=== PATIENT | female | born 1970 | race Caucasian/White ===

== ENCOUNTER 2018-02-04 22:36 | Emergency (ER) | payer OTHER ==
[2018-02-04] MEDS ORDERED: NA CHLORIDE 0.9% 1,000 ML ONE (23:27)
[2018-02-04] MEDS ORDERED: PROMETHAZINE 25 MG/ML VIAL ONE (23:32)
[2018-02-05 00:10] LABS: Absolute Lymphocytes (CBC) 0.5 K/uL (0.7-4.9); Absolute Monocytes 0.2 K/uL (0.1-1.3); Absolute Neutrophil 7.1 K/uL (1.8-8.0); Basophils % 0.1 % (0-1.3); Hematocrit 43.6 % (36.0-45.0); Lymphocytes % 6.4 % (15.3-44.8); MCH 28.7 pg (27.0-35.0); MCV 85.8 fL (80-100); MPV 9.6 fL (7.6-11.3); Monocytes % 3.2 % (3.3-12.3); RBC Red Blood Cell Count 5.08 M/uL (3.86-4.86)
[2018-02-05 00:39] LABS: Potassium 3.6 mEq/L (3.6-5.0)
[2018-02-05] MEDS ORDERED: NA CHLORIDE 0.9% 1,000 ML ONE (00:40)
[2018-02-05 00:45] LABS: Albumin 4.1 g/dL (3.2-5.5); Bilirubin Direct 0.1 mg/dL (0-0.2); Bilirubin Total 0.5 mg/dL (0.3-1.2); Protein, Total 7.6 g/dL (6.0-8.3)
--- NOTE | 2018-02-05 01:38 | ER ---
Nurse's Notes [facility] Name: Lolis Martinez Age: 47 yrs Sex: Female : 1970 Arrival Date: 02/04/2018 Time: 22:41 Bed 8 Private MD: Diagnosis: Vomiting, unspecified Presentation: 02/04 22:46 Presenting complaint: Patient states: vomiting since yesterday and has only urinated aa1 once today. Transition of care: patient was not received from another setting of care. Onset of symptoms was February 03, 2018. Care prior to arrival: None. 22:46 Method Of Arrival: Ambulatory aa1 22:46 Acuity: FABBY 3 aa1 23:11 Initial Sepsis Screen: Does the patient meet any 2 criteria? HR > 90 bpm. No. Patient's tl2 initial sepsis screen is negative. Does the patient have a suspected source of infection? No. Patient's initial sepsis screen is negative. Triage Assessment: 22:48 General: Appears in no apparent distress. comfortable, Behavior is calm, cooperative, aa1 appropriate for age. 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 - Social history:: Smoking status: Patient/guardian denies using tobacco. Screenin:20 Abuse screen: Denies threats or abuse. Nutritional screening: No deficits noted. tl2 Tuberculosis screening: No symptoms or risk factors identified. Fall Risk None identified. Assessment: 23:20 General: Appears in no apparent distress. uncomfortable, Behavior is calm, cooperative, tl2 appropriate for age. Pain: Complains of pain in headache Pain currently is 10 out of 10 on a pain scale. Neuro: Level of Consciousness is awake, alert, obeys commands, Oriented to person, place, time, situation. Cardiovascular: Denies chest pain. Respiratory: Airway is patent Respiratory effort is even, unlabored, Respiratory pattern is regular, symmetrical. GI: Abdomen is non-distended, Reports nausea, vomiting. : Reports only urinating one time today. Derm: Skin is pink, warm \T\ dry. 02/05 00:30 Reassessment: Patient appears in no apparent distress at this time. Patient and/or tl2 family updated on plan of care and expected duration. Pain level reassessed. Patient is alert, oriented x 3, equal unlabored respirations, skin warm/dry/pink. 02:00 Reassessment: Patient appears in no apparent distress at this time. Patient and/or tl2 family updated on plan of care and expected duration. Pain level reassessed. Patient is alert, oriented x 3, equal unlabored respirations, skin warm/dry/pink. 02:26 Reassessment: Pt verbalized understanding of discharge instructions, need for follow up tl2 and prescription usage. Vital Signs: 02/04 22:48 BP 125 / 78; Pulse 104; Resp 18; Temp 98.6; Pulse Ox 99% on R/A; Weight 90.72 kg; aa1 Height 5 ft. 3 in. (160.02 cm); Pain 10/10; 23:32 BP 122 / 57; Pulse 91; Resp 16; Pulse Ox 98% on R/A; mt 02/05 00:40 BP 103 / 54; Pulse 91; Resp 18; Pulse Ox 99% on R/A; mt 02:26 BP 100 / 79; Pulse 84; Resp 18; Pulse Ox 100% on R/A; tl2 02/04 22:48 Body Mass Index 35.43 (90.72 kg, 160.02 cm) aa1 ED Course: 02/04 22:41 Patient arrived in ED. aa1 22:46 Triage completed. aa1 22:48 Arm band placed on right wrist. Patient placed in waiting room, Patient notified of aa1 wait time. 23:11 Lucy Toscano RN is Primary Nurse. tl2 23:12 Inserted saline lock: 20 gauge in right antecubital area, using aseptic technique. mt Blood collected. 23:17 Tamika Son FNP-C is PHCP. snw 23:17 Dharmesh Graves MD is Attending Physician. snw 23:20 Patient has correct armband on for positive identification. Bed in low position. Call tl2 light in reach. Side rails up X 1. Adult w/ patient. 02/05 02:26 No provider procedures requiring assistance completed. IV discontinued, intact, tl2 bleeding controlled, No redness/swelling at site. Pressure dressing applied. Administered Medications: 02/04 23:32 Drug: NS 0.9% 1000 ml Route: IV; Rate: 1 bolus; Site: right antecubital; tl2 02/05 02:27 Follow up: IV Status: Completed infusion; IV Intake: 1000ml tl2 02/04 23:40 Drug: Phenergan 12.5 mg Route: IVP; Site: right antecubital; tl2 02/05 00:00 Follow up: Response: No adverse reaction; Nausea is decreased tl2 00:48 Drug: NS 0.9% 1000 ml Route: IV; Rate: 125 ml/hr; Site: right antecubital; tl2 02:27 Follow up: IV Status: Completed infusion; IV Intake: 1000ml tl2 00:49 Drug: Phenergan 12.5 mg Route: IVP; Site: right antecubital; tl2 02:28 Follow up: Response: No adverse reaction; Nausea is decreased tl2 Intake: 02:27 IV: 1000ml; Total: 1000ml. tl2 02:27 IV: 1000ml; Total: 2000ml. tl2 Outcome: 01:37 Discharge ordered by . snw 02:26 Discharged to home ambulatory, with family. tl2 02:26 Condition: stable 02:26 Discharge instructions given to patient, family, Instructed on discharge instructions, follow up and referral plans. medication usage, Demonstrated understanding of instructions, follow-up care, medications, Prescriptions given X 1. 02:28 Patient left the ED. tl2 Signatures: Bibi King RN RN aa1 Tamika Son, RACEBOOK WRITER-C RACEBOOK WRITER-Csnw Lucy Toscano RN RN tl2 Cande Herrera mt
--- NOTE | 2018-02-05 01:38 | EDPHYS ---
Physician Documentation [facility] Name: Lolis Martinez Age: 47 yrs Sex: Female : 1970 Arrival Date: 02/04/2018 Time: 22:41 Bed 8 Private MD: ED Physician Dharmesh Graves HPI: 02/04 23:40 This 47 yrs old Female presents to ER via Ambulatory with complaints of snw Nausea/Vomiting. 23:40 The patient presents to the emergency department with nausea, vomiting. Onset: The snw symptoms/episode began/occurred suddenly, last night. Possible causes: unknown. The symptoms are aggravated by nothing. The symptoms are alleviated by nothing. Severity of symptoms: At their worst the symptoms were moderate severe. It is unknown whether or not the patient has had similar symptoms in the past. It is unknown whether or not the patient has recently seen a physician. 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 - Social history:: Smoking status: Patient/guardian denies using tobacco. ROS: 23:40 Constitutional: Negative for fever, chills, and weight loss, Eyes: Negative for injury, snw pain, redness, and discharge, ENT: Negative for injury, pain, and discharge, Neck: Negative for injury, pain, and swelling, Cardiovascular: Negative for chest pain, palpitations, and edema, Respiratory: Negative for shortness of breath, cough, wheezing, and pleuritic chest pain, Back: Negative for injury and pain, : Negative for injury, bleeding, discharge, and swelling, MS/Extremity: Negative for injury and deformity, Skin: Negative for injury, rash, and discoloration, Neuro: Negative for headache, weakness, numbness, tingling, and seizure, Psych: Negative for depression, anxiety, suicide ideation, homicidal ideation, and hallucinations. 23:40 Abdomen/GI: Positive for vomiting. Exam: 23:39 Constitutional: This is a well developed, well nourished patient who is awake, alert, snw and in no acute distress. Head/Face: Normocephalic, atraumatic. Eyes: Pupils equal round and reactive to light, extra-ocular motions intact. Lids and lashes normal. Conjunctiva and sclera are non-icteric and not injected. Cornea within normal limits. Periorbital areas with no swelling, redness, or edema. ENT: Nares patent. No nasal discharge, no septal abnormalities noted. Tympanic membranes are normal and external auditory canals are clear. Oropharynx with no redness, swelling, or masses, exudates, or evidence of obstruction, uvula midline. Mucous membranes moist. Neck: Trachea midline, no thyromegaly or masses palpated, and no cervical lymphadenopathy. Supple, full range of motion without nuchal rigidity, or vertebral point tenderness. No Meningismus. Chest/axilla: Normal chest wall appearance and motion. Nontender with no deformity. No lesions are appreciated. Cardiovascular: Regular rate and rhythm with a normal S1 and S2. No gallops, murmurs, or rubs. Normal PMI, no JVD. No pulse deficits. Respiratory: Lungs have equal breath sounds bilaterally, clear to auscultation and percussion. No rales, rhonchi or wheezes noted. No increased work of breathing, no retractions or nasal flaring. Back: No spinal tenderness. No costovertebral tenderness. Full range of motion. Skin: Warm, dry with normal turgor. Normal color with no rashes, no lesions, and no evidence of cellulitis. MS/ Extremity: Pulses equal, no cyanosis. Neurovascular intact. Full, normal range of motion. Neuro: Awake and alert, GCS 15, oriented to person, place, time, and situation. Cranial nerves II-XII grossly intact. Motor strength 5/5 in all extremities. Sensory grossly intact. Cerebellar exam normal. Normal gait. 23:39 Abdomen/GI: Inspection: abdomen appears normal, Bowel sounds: active, all quadrants. Vital Signs: 22:48 BP 125 / 78; Pulse 104; Resp 18; Temp 98.6; Pulse Ox 99% on R/A; Weight 90.72 kg; aa1 Height 5 ft. 3 in. (160.02 cm); Pain 10/10; 23:32 BP 122 / 57; Pulse 91; Resp 16; Pulse Ox 98% on R/A; mt 02/05 00:40 BP 103 / 54; Pulse 91; Resp 18; Pulse Ox 99% on R/A; mt 02:26 BP 100 / 79; Pulse 84; Resp 18; Pulse Ox 100% on R/A; tl2 02/04 22:48 Body Mass Index 35.43 (90.72 kg, 160.02 cm) aa1 MDM: 02/04 23:17 Patient medically screened. snw 02/05 01:50 Data reviewed: vital signs, nurses notes. Data interpreted: Pulse oximetry: on room air snw is 99 %. Interpretation: normal. Counseling: I had a detailed discussion with the patient and/or guardian regarding: the historical points, exam findings, and any diagnostic results supporting the discharge/admit diagnosis, lab results, radiology results, the need for outpatient follow up, to return to the emergency department if symptoms worsen or persist or if there are any questions or concerns that arise at home. Special discussion: Based on the patient's Hx, exam, and Dx evaluation, there is no indication for emergent surgery or inpatient Tx. It is understood by the patient/guardian that if the Sx's persist or worsen they need to return immediately for re-evaluation. Based on the history and exam findings, there is no indication for further emergent testing or inpatient evaluation. I discussed with the patient/guardian the need to see the primary care provider for further evaluation of the symptoms. 02/04 23:18 Order name: Basic Metabolic Panel; Complete Time: 00:50 snw 02/04 23:18 Order name: CBC with Diff snw 02/04 23:18 Order name: Hepatic Function; Complete Time: 00:50 snw 02/04 23:18 Order name: Lipase; Complete Time: 00:50 snw 02/04 23:18 Order name: Urine Microscopic Only snw 02/04 23:18 Order name: Urine Culture snw 02/04 23:18 Order name: IV Saline Lock; Complete Time: 23:19 snw 02/05 00:25 Order name: Manual Differential EDMS 02/05 00:46 Order name: Urine Dipstick--Ancillary (enter results) rg2 02/05 00:46 Order name: Urine --Ancillary (enter results) 2 02/04 23:18 Order name: Labs collected and sent; Complete Time: 23:19 snw 02/04 23:18 Order name: Urine Dipstick-Ancillary (obtain specimen); Complete Time: 00:42 snw 02/05 01:03 Order name: Alexia. Order: increase IVF rate to bolus please; Complete Time: 01:11 snw Administered Medications: 02/04 23:32 Drug: NS 0.9% 1000 ml Route: IV; Rate: 1 bolus; Site: right antecubital; tl2 02/05 02:27 Follow up: IV Status: Completed infusion; IV Intake: 1000ml tl2 02/04 23:40 Drug: Phenergan 12.5 mg Route: IVP; Site: right antecubital; tl2 02/05 00:00 Follow up: Response: No adverse reaction; Nausea is decreased tl2 00:48 Drug: NS 0.9% 1000 ml Route: IV; Rate: 125 ml/hr; Site: right antecubital; tl2 02:27 Follow up: IV Status: Completed infusion; IV Intake: 1000ml tl2 00:49 Drug: Phenergan 12.5 mg Route: IVP; Site: right antecubital; tl2 02:28 Follow up: Response: No adverse reaction; Nausea is decreased tl2 Disposition: 08:16 Co-signature as Attending Physician, Dharmesh Graves MD I agree with the assessment and lakhwinder plan of care. Disposition: 02/05/18 01:37 Discharged to Home. Impression: Vomiting, unspecified. - Condition is Stable. - Discharge Instructions: Clear Liquid Diet, Nausea and Vomiting, Rehydration, Adult. - Prescriptions for Zofran 4 mg Oral Tablet - take 1 tablet by ORAL route 3-4 times daily As needed; 20 tablet. - Medication Reconciliation Form, Thank You Letter, Antibiotic Education, Prescription Opioid Use form. - Follow up: Private Physician; When: 1 - 2 days; Reason: Recheck today's complaints, Continuance of care, Re-evaluation by your physician. Follow up: Emergency Department; When: As needed; Reason: Worsening of condition. Signatures: Dispatcher MedHo EDBibi Case RN RN [email or web address] Dharmesh Graves MD MD cha Therrien, Shelly, ENGINEERING AND SCIENTIFIC PROGRAMMER-C ENGINEERING AND SCIENTIFIC PROGRAMMER-Csnw Lucy Toscano, RN RN tl2 Corrections: (The following items were deleted from the chart) 02:28 01:37 02/05/2018 01:37 Discharged to Home. Impression: Vomiting, unspecified. Condition tl2 is Stable. Discharge Instructions: Clear Liquid Diet, Nausea and Vomiting, Rehydration, Adult. Prescriptions for Zofran 4 mg Oral Tablet - take 1 tablet by ORAL route 3-4 times daily As needed; 20 tablet. and Forms are Medication Reconciliation Form, Thank You Letter, Antibiotic Education, Prescription Opioid Use. Follow up: Private Physician; When: 1 - 2 days; Reason: Recheck today's complaints, Continuance of care, Re-evaluation by your physician. Follow up: Emergency Department; When: As needed; Reason: Worsening of condition. snw
[2018-02-05 01:59] LABS: Blood Morphology Comment NOT SEEN (NOT SEEN); Platelet Estimate ADEQ
[2018-02-05 02:00] LABS: Urine Blood NEGATIVE (NEG); Urine Glucose NEGATIVE (NEG); Urine Protein NEGATIVE (NEG); Urine pH 5.5 (5.0-7.0)
[2018-02-05 03:19] LABS: Urine Bacteria 20-50 /HPF (<20); Urine Culture Reflex Order NOT NEEDED; Urine RBC NONE SEEN /HPF (NONE SEEN)
== END 2018-02-05 02:28 | disposition home or self-care (01) ==
LOC: ER 22:36
DX: R11.2 Nausea with vomiting, unspecified (principal); N18.9 Chronic kidney disease, unspecified; E78.00 Pure hypercholesterolemia, unspecified
CPT/HCPCS: 36415; 80048; 80076; 81003; 81015; 81025; 83690; 85025; 87086; 87088; 96361; 96374; 99284; J2550; J7030

== ENCOUNTER 2018-09-04 11:00 | Emergency (ER) | payer OTHER ==
[2018-09-04 12:40] LABS: Absolute Lymphocytes (CBC) 2.3 K/uL (0.7-4.9); Absolute Monocytes 0.5 K/uL (0.1-1.3); Absolute Neutrophil 2.9 K/uL (1.8-8.0); Basophils % 0.6 % (0-1.3); Eosinophils % 2.2 % (0-4.4); Hematocrit 42.3 % (36.0-45.0); Lymphocytes % 39.4 % (15.3-44.8); MCH 29.9 pg (27.0-35.0); MCV 86.8 fL (80-100); MPV 8.7 fL (7.6-11.3); Monocytes % 8.4 % (3.3-12.3); RBC Red Blood Cell Count 4.88 M/uL (3.86-4.86)
[2018-09-04] MEDS ORDERED: MORPHINE 4 MG/ML SYR ONE (13:25)
[2018-09-04] MEDS ORDERED: ONDANSETRON 4 MG/2 ML VIAL ONE (13:25)
[2018-09-04 13:26] LABS: Urine Bacteria 20-50 /HPF (<20); Urine Culture Reflex Order REFLEXED; Urine RBC NONE SEEN /HPF (NONE SEEN)
[2018-09-04] MEDS ORDERED: NA CHLORIDE 0.9% 1,000 ML ONE (13:26)
[2018-09-04 13:28] LABS: Urine Blood NEGATIVE (NEG); Urine Glucose NEGATIVE (NEG); Urine Protein NEGATIVE (NEG)
--- NOTE | 2018-09-04 14:11 | RAD REPORT ---
EXAM DESCRIPTION: CT - Abdomen Pelvis W Contrast - 09/04/2018 1:50 pm CLINICAL HISTORY: Abdominal pain left upper quadrant pain with nausea COMPARISON: 2016 TECHNIQUE: Computed axial tomography of the abdomen pelvis was obtained. 100 cc Isovue-300 was admin istered intravenously. Oral contrast was not requested which limits evaluation of bowel. All CT scans are performed using dose optimization technique as appropriate and may include automated exposure control or mA/KV adjustment according to patient size. FINDINGS: The liver, spleen, pancreas, adrenal and right kidney appear unremarkable. A 3 millimeter nonobstructing left renal calculus There is no evidence of diverticulitis. The appendix is normal A hysterectomy has been performed. A 2 centimeter right ovarian cyst without significant free fluid Moderate amount of stool within the colon. Tiny umbilical hernia IMPRESSION: Moderate amount of stool within the colon 2 centimeter right ovarian cyst without significant free fluid
--- NOTE | 2018-09-04 14:21 | ER ---
Nurse's Notes [facility] Name: Lolis Martinez Age: 47 yrs Sex: Female : 1970 Arrival Date: 09/04/2018 Time: 11:02 Bed 25 Private MD: None, None Diagnosis: Generalized abdominal pain;Other ovarian cysts Presentation: 09/04 11:10 Presenting complaint: Patient states: lucy low back pain, pain in LUQ that radiates to ph RUQ and nausea x 24 hours, denies V/D or fever, reports hx of kidney stones. Transition of care: patient was not received from another setting of care. Onset of symptoms was September 04, 2018. Risk Assessment: Do you want to hurt yourself or someone else?. Care prior to arrival: None. 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 Screenin:51 Abuse screen: Denies threats or abuse. Denies injuries from another. Nutritional ss screening: No deficits noted. Tuberculosis screening: No symptoms or risk factors identified. Never had TB. Fall Risk None identified. Assessment: 12:15 General: Appears in no apparent distress. comfortable, Behavior is calm, cooperative. ss Pain: Complains of pain in left lower quadrant Pain currently is 8 out of 10 on a pain scale. Neuro: Level of Consciousness is awake, alert, obeys commands, Oriented to person, place, time, situation. Cardiovascular: Capillary refill < 3 seconds is brisk in bilateral fingers. Respiratory: Airway is patent Respiratory effort is even, unlabored, Respiratory pattern is regular, symmetrical. GI: Patient currently denies diarrhea, vomiting. : Reports foul odor in urine Denies burning with urination, urinary frequency. EENT: Nares are clear Oral mucosa is moist. Derm: Skin is intact, is healthy with good turgor, Skin is dry, Skin is pink, warm \T\ dry. normal. Musculoskeletal: Circulation, motion, and sensation intact. Range of motion: intact in all extremities, Swelling absent. Vital Signs: 11:11 BP 147 / 94; Pulse 84; Resp 18; Temp 98.2; Pulse Ox 100% on R/A; Weight 93.44 kg; ph Height 5 ft. 3 in. (160.02 cm); Pain 10/10; 11:11 Body Mass Index 36.49 (93.44 kg, 160.02 cm) ph ED Course: 11:02 Patient arrived in ED. sb2 11:02 None, None is Private Physician. sb2 11:11 Triage completed. ph 11:12 Arm band placed on Patient placed in waiting room, Patient notified of wait time. ph 11:45 [facility] Pino [facility]-C [facility] kb 11:45 Mello Leggett MD is Attending Physician. kb 12:30 Inserted saline lock: 22 gauge in left antecubital area, using aseptic technique. Blood ss collected. 12:51 Patient has correct armband on for positive identification. Bed in low position. Call ss light in reach. 12:51 No provider procedures requiring assistance completed. Patient maintains SpO2 ss saturation greater than 95% on room air. 14:26 IV discontinued, intact, bleeding controlled, No redness/swelling at site. Pressure kr2 dressing applied, removed by resource technician Chalo. Administered Medications: 13:22 Drug: morphine 4 mg Route: IVP; Site: left antecubital; kr2 13:23 Drug: NS 0.9% 1000 ml Route: IV; Rate: 1000 ml; Site: left antecubital; kr2 13:23 Drug: Zofran 4 mg Route: IVP; Site: left antecubital; kr2 Outcome: 14:20 Discharge ordered by MD. kb 14:27 Discharged to home ambulatory, with family. kr2 14:27 Condition: good 14:27 Discharge instructions given to family, Instructed on discharge instructions, follow up and referral plans. medication usage, Demonstrated understanding of instructions, follow-up care, medications, Prescriptions given X 2. 14:27 Patient left the ED. kr2 Signatures: Judith Pino FNP-C FNP-Jenny Coronado RN RN ss Maritza Vivar RN RN Franci Richards RN RN kr2 Karlee Smith sb2
--- NOTE | 2018-09-04 14:21 | EDPHYS ---
Physician Documentation [facility] Name: Lolis Martinez Age: 47 yrs Sex: Female : 1970 Arrival Date: 09/04/2018 Time: 11:02 Bed 25 Private MD: None, None ED Physician Mello Leggett HPI: 09/04 12:47 This 47 yrs old Female presents to ER via Ambulatory with complaints of Back kb Pain, SIDE PAIN. 12:47 The patient presents with abdominal pain in the left upper quadrant, in the left lower kb quadrant. Onset: The symptoms/episode began/occurred yesterday. The symptoms do not radiate. Associated signs and symptoms: Pertinent positives: nausea, Pertinent negatives: constipation, diarrhea, fever, vomiting. The symptoms are described as constant. Modifying factors: The symptoms are alleviated by nothing, the symptoms are aggravated by pressure, walking. Severity of pain: At its worst the pain was moderate severe in the emergency department the pain is unchanged. The patient has not experienced similar symptoms in the past. The patient has not recently seen a physician. 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 ROS: 12:43 Constitutional: Negative for fever, chills, and weight loss, ENT: Negative for injury, kb pain, and discharge, Neck: Negative for injury, pain, and swelling, Cardiovascular: Negative for chest pain, palpitations, and edema, Respiratory: Negative for shortness of breath, cough, wheezing, and pleuritic chest pain, Back: Negative for injury and pain, : Negative for injury, bleeding, discharge, and swelling, MS/Extremity: Negative for injury and deformity, Skin: Negative for injury, rash, and discoloration, Neuro: Negative for headache, weakness, numbness, tingling, and seizure. 12:43 Abdomen/GI: Positive for abdominal pain, nausea, Negative for vomiting, diarrhea, constipation, abdominal cramps, abdominal distension, anorexia. Exam: 12:46 Constitutional: This is a well developed, well nourished patient who is awake, alert, kb and in no acute distress. Head/Face: Normocephalic, atraumatic. Chest/axilla: Normal chest wall appearance and motion. Nontender with no deformity. No lesions are appreciated. Cardiovascular: Regular rate and rhythm with a normal S1 and S2. No gallops, murmurs, or rubs. Normal PMI, no JVD. No pulse deficits. Respiratory: Lungs have equal breath sounds bilaterally, clear to auscultation and percussion. No rales, rhonchi or wheezes noted. No increased work of breathing, no retractions or nasal flaring. Back: No spinal tenderness. No costovertebral tenderness. Full range of motion. Skin: Warm, dry with normal turgor. Normal color with no rashes, no lesions, and no evidence of cellulitis. MS/ Extremity: Pulses equal, no cyanosis. Neurovascular intact. Full, normal range of motion. Neuro: Awake and alert, GCS 15, oriented to person, place, time, and situation. Cranial nerves II-XII grossly intact. Motor strength 5/5 in all extremities. Sensory grossly intact. Cerebellar exam normal. Normal gait. 12:46 Abdomen/GI: Inspection: abdomen appears normal, Bowel sounds: normal, in all quadrants, Palpation: soft, in all quadrants, nontender, in the right lower quadrant, mild abdominal tenderness, in the right upper quadrant, moderate abdominal tenderness, in the left upper quadrant and left lower quadrant. Vital Signs: 11:11 BP 147 / 94; Pulse 84; Resp 18; Temp 98.2; Pulse Ox 100% on R/A; Weight 93.44 kg; ph Height 5 ft. 3 in. (160.02 cm); Pain 10/10; 11:11 Body Mass Index 36.49 (93.44 kg, 160.02 cm) ph MDM: 11:45 Patient medically screened. kb 12:43 Data reviewed: vital signs, nurses notes. Data interpreted: Pulse oximetry: on room air kb is 100 %. Interpretation: normal. 14:19 Counseling: I had a detailed discussion with the patient and/or guardian regarding: the kb historical points, exam findings, and any diagnostic results supporting the discharge/admit diagnosis, lab results, radiology results, the need for outpatient follow up, a family practitioner, to return to the emergency department if symptoms worsen or persist or if there are any questions or concerns that arise at home. 09/04 12:07 Order name: Basic Metabolic Panel 09/04 12:07 Order name: CBC with Diff kb 09/04 12:07 Order name: Urine Microscopic Only 09/04 12:44 Order name: Urine Dipstick--Ancillary (enter results) em1 09/04 12:48 Order name: CBC with Automated Diff; Complete Time: 12:49 EDMS 09/04 12:54 Order name: Basic Metabolic Panel; Complete Time: 12:54 EDMS 09/04 12:07 Order name: IV Saline Lock; Complete Time: 12:50 kb 09/04 13:27 Order name: Urine Microscopic Only; Complete Time: 13:29 EDMS 09/04 13:29 Order name: Urine Dipstick-Ancillary; Complete Time: 13:29 EDMS 09/04 13:29 Order name: CT Abd/Pelvis - W/Contrast 09/04 14:11 Order name: CT; Complete Time: 14:15 EDNH 09/04 12:07 Order name: Labs collected and sent; Complete Time: 12:50 kb 09/04 12:07 Order name: Urine Dipstick-Ancillary (obtain specimen); Complete Time: 12:43 kb Administered Medications: 13:22 Drug: morphine 4 mg Route: IVP; Site: left antecubital; kr2 13:23 Drug: NS 0.9% 1000 ml Route: IV; Rate: 1000 ml; Site: left antecubital; kr2 13:23 Drug: Zofran 4 mg Route: IVP; Site: left antecubital; kr2 Disposition: 09/04/18 14:20 Discharged to Home. Impression: Generalized abdominal pain, Other ovarian cysts. - Condition is Stable. - Discharge Instructions: Abdominal Pain, Adult, [id number], Ovarian Cyst, [id number]. - Prescriptions for Zofran 4 mg Oral Tablet - take 1 tablet by ORAL route every 6 hours As needed; 20 tablet. Diclofenac Sodium 75 mg Oral Tablet, Delayed Release (E.C.) - take 1 tablet by ORAL route 2 times per day As needed; 30 tablet. - Medication Reconciliation Form, Thank You Letter, Antibiotic Education, Prescription Opioid Use form. - Follow up: Emergency Department; When: As needed; Reason: Worsening of condition. Follow up: Private Physician; When: 2 - 3 days; Reason: Recheck today's complaints, Continuance of care, Re-evaluation by your physician. Addendum: 09/06/2018 09:09 Co-signature as Attending Physician, Mello Leggett MD I agree with the assessment and k dr plan of care. Signatures: Dispatcher [employer] EDNH Judith Pino, GEOINT ANALYST-C GEOINT ANALYST-CkMello Sebastian MD MD [facility] Maritza Vivar, RN RN [facility] HospitalSusieFranci blevins RN RN kr2 Corrections: (The following items were deleted from the chart) 09/04 12:42 12:07 Urine Test ordered. kb em1 14:20 14:20 09/04/2018 14:20 Discharged to Home. Impression: Generalized abdominal pain. kb Condition is Stable. Forms are Medication Reconciliation Form, Thank You Letter, Antibiotic Education, Prescription Opioid Use. Follow up: Emergency Department; When: As needed; Reason: Worsening of condition. Follow up: Private Physician; When: 2 - 3 days; Reason: Recheck today's complaints, Continuance of care, Re-evaluation by your physician. kb 14:27 14:20 09/04/2018 14:20 Discharged to Home. Impression: Generalized abdominal pain; kr2 Other ovarian cysts. Condition is Stable. Forms are Medication Reconciliation Form, Thank You Letter, Antibiotic Education, Prescription Opioid Use. Follow up: Emergency Department; When: As needed; Reason: Worsening of condition. Follow up: Private Physician; When: 2 - 3 days; Reason: Recheck today's complaints, Continuance of care, Re-evaluation by your physician. kb
== END 2018-09-04 14:27 | disposition home or self-care (01) ==
LOC: ER 11:00
DX: N83.299 Other ovarian cyst, unspecified side (principal); Z88.5 Allergy status to narcotic agent; Z88.8 Allergy status to other drugs, medicaments and biological substances; Z98.82 Breast implant status
CPT/HCPCS: 36415; 74177; 80048; 81003; 81015; 85025; 87086; 87088; 96374; 96375; 99284; J2405; J7030; Q9967

== ENCOUNTER 2024-12-30 10:17 | Emergency (ER) | payer OTHER ==
[2024-12-30 10:56] LABS: Absolute Eosinophils 0.2 K/uL (0-0.5); Absolute Lymphocytes (CBC) 1.5 K/uL (0.7-4.9); Absolute Monocytes 0.6 K/uL (0.1-1.3); Absolute Neutrophil 3.7 K/uL (1.8-8.0); Basophils % 0.4 % (0-1.3); Eosinophils % 3.9 % (0-4.4); Hematocrit 35.7 % (36.0-45.0); Hemoglobin 12.2 g/dL (12.0-15.0); Lymphocytes % 24.9 % (15.3-44.8); MCH 29.1 pg (27.0-35.0); MCHC 34.1 g/dL (32.0-36.0); MCV 85.4 fL (80-100); MPV 7.8 fL (7.6-11.3); Monocytes % 9.2 % (3.3-12.3); Neutrophils % 61.6 % (41.7-73.7); Platelets 327 thou/uL (152-406); RBC Red Blood Cell Count 4.18 M/uL (3.86-4.86); Red Cell Distribution Width 14.1 % (12.1-15.2)
--- NOTE | 2024-12-30 11:08 | RAD REPORT ---
EXAMINATION: ONE VIEW CHEST XR CLINICAL INDICATION: DYSPNEA TECHNIQUE: Frontal chest projection is submitted. Examination is limited by patient positioning and t echnique. COMPARISON: No prior exam. FINDINGS: The lungs are well inflated and clear. The heart is normal in size. No displaced fractures identified . IMPRESSION: No acute intrathoracic abnormalities.
[2024-12-30 11:18] LABS: Anion Gap 8.5 mEq/L (5.0-15.0); BUN Blood Urea Nitrogen 10 mg/dL (7-18); Bicarbonate 28 mEq/L (21-32); Glomerular Filtration Rate 92 ml/min (=/>90); Glucose Level 111 mg/dL (74-106); NT PRO-BNP 84 pg/mL (<125); Potassium 3.5 mEq/L (3.5-5.1); Sodium Level 139 mEq/L (136-145)
[2024-12-30 11:21] LABS: Troponin High Sensitivity < 3.0 pg/mL (<58.9)
--- NOTE | 2024-12-30 12:08 | RAD REPORT ---
EXAMINATION: CTA CHEST PE CLINICAL INDICATION: dyspnea 1 week s/p cholecystectomy TECHNIQUE: This examination was performed according to an angiographic protocol with 3D post-processi ng. This involves 3D reconstructions, MIPs, volume rendered images and/or shaded surface rendering. One or more of the following dose reduction techniques were used: Automated exposure control, adjustm ent of the mA and/or kV according to patient size, and/or iterative reconstruction. Unless otherwise specified, incidental findings do not require dedicated imaging follow-up. COMPARISON: No prior exam. FINDINGS: PULMONARY ARTERIES: Normal caliber. No evidence of pulmonary emboli to the subsegmental level. THORACIC AORTA: Normal caliber and configuration. LUNGS: No evidence of airspace or interstitial process. No nodules. Minimal linear atelectasis in bot h lung bases posteriorly. PLEURA: No pleural effusion. No pneumothorax. MEDIASTINUM AND LYMPH NODES: No mediastinal mass or fluid collection. Normal size mediastinal, hilar, and axillary lymph nodes. OSSEOUS STRUCTURES AND CHEST WALL: Intact. UPPER ABDOMEN: Cholecystomy clips. IMPRESSION: No evidence of pulmonary emboli to the subsegmental level.
--- NOTE | 2024-12-30 12:32 | EDPHYS ---
Physician Documentation [facility] Name: Lolis Mao Age: 54 yrs Sex: Female : 1970 Arrival Date: 12/30/2024 Time: 10:17 Bed 6 Private MD: ED Physician Brayan Gonzales HPI: 12/30 11:08 This 54 yrs old Female presents to ER via Ambulatory with complaints of Shortness Of rn Breath. 11:08 The patient has shortness of breath with light activity. rn 11:09 Onset: The symptoms/episode began/occurred 3 day(s) ago. Duration: The symptoms are rn intermittent. The patient's shortness of breath is aggravated by exertion, light activity. Associated signs and symptoms: Pertinent negatives: chest pain, non-productive cough, productive cough, hemoptysis. Severity of symptoms: At their worst the symptoms were mild in the emergency department the symptoms are unchanged. The patient has not experienced similar symptoms in the past. The patient has been recently seen by a physician:. Patient reports 3 days of shortness of breath, worse with exertion, denies chest pain. Patient has a few days postop from cholecystectomy. Was admitted for 3 days for gallstone pancreatitis. No history of DVT or PE. No leg pain or swelling. States he uses an inhaler but does not feel like it is helping.. Historical: - Allergies: 10:20 Ciprofloxacin; ph 10:20 Demerol; ph 10:20 tramadol; ph 10:25 Meperidine; ll1 10:25 Sulfa (Sulfonamide Antibiotics); ll1 10:25 Codeine; ll1 - PMHx: 10:25 High Cholesterol; Renal Disease; Pancreatitis; ll1 - PSHx: 10:25 Cholecystectomy; ll1 - Immunization history:: Adult Immunizations up to date. - Infectious Disease History:: Denies. - Social history:: Smoking status: Patient denies any tobacco usage or history of. - Family history:: not pertinent. - Hospitalizations: : Patient was recently seen at. ROS: 11:09 Constitutional: Positive for subjective fever Cardiovascular: Negative for chest pain, rn palpitations, and edema, Respiratory: Positive for shortness of breath Abdomen/GI: Patient reports postoperative abdominal pain but nothing compared to the cholelithiasis or pancreatitis when hospitalized. MS/Extremity: Negative for injury and deformity, Skin: Negative for injury, rash, and discoloration, Neuro: Negative for headache, weakness, numbness, tingling, and seizure, Exam: 11:05 ECG was reviewed by the Attending Physician. rn 11:09 Constitutional: This is a well developed, well nourished patient who is awake, alert, rn and in no acute distress. Cardiovascular: Tachycardic, regular. No pulse deficits. Respiratory: Mild tachypnea Abdomen/GI: Soft, non-tender MS/ Extremity: Pulses equal, no cyanosis. No edema. Equal circumference bilaterally. Neuro: Awake and alert, GCS 15 Vital Signs: 10:26 BP 117 / 76; Pulse 111; Resp 20; Temp 97.7; Pulse Ox 100% on R/A; Weight 74.39 kg; ll1 Height 5 ft. 3 in. ; Pain 0/10; 12:40 BP 121 / 77; Pulse 85; Resp 18; Temp 97.8; Pulse Ox 98% on R/A; ph 10:26 Body Mass Index 29.05 (74.39 kg, 160.02 cm) ll1 10:26 Pain Scale: Adult ll1 MDM: 10:24 Medical Screening Exam initiated rn 12:29 Differential diagnosis: pneumonia, Pneumothorax Pulmonary Embolism Atelectasis, rn pulmonary embolism, pleural effusion. 12:30 Data reviewed: vital signs, nurses notes, lab test result(s), EKG, radiologic studies, rn CT scan, plain films, and as a result, I will discharge patient. Counseling: I had a detailed discussion with the patient and/or guardian regarding the historical points, exam findings, and any diagnostic results supporting the discharge/admit diagnosis, lab results, radiology results, the need for outpatient follow up, to return to the emergency department if symptoms worsen or persist or if there are any questions or concerns that arise at home. Response to treatment: the patient's symptoms have mildly improved after treatment, and as a result, I will admit patient. ED course: No acute findings and workup. CT negative for PE. Chest x-ray images negative for pneumonia or fluid per my interpretation. CT shows atelectasis which could explain some of patient's symptoms especially postoperatively with subjective low-grade fever. No infectious etiology found to warrant antibiotics. Will discharge home with incentive spirometer, continued use of inhaler as needed. I am worried about putting her on steroids this close to surgery so we will discharge without steroids and given return precautions.. 12/30 10:35 Order name: Basic Metabolic Panel; Complete Time: 11:21 rn 12/30 10:35 Order name: CBC with Diff; Complete Time: 11:12 rn 12/30 10:35 Order name: NT PRO-BNP; Complete Time: 11:21 rn 12/30 10:35 Order name: Troponin HS; Complete Time: 11:21 rn 12/30 10:35 Order name: XRAY Chest (1 view); Complete Time: 11:12 rn 12/30 10:35 Order name: CT Chest For PE Angio; Complete Time: 12:10 rn 12/30 12:30 Order name: INCENTIVE SPIROMETRY rn 12/30 10:35 Order name: Cardiac monitoring; Complete Time: 10:56 rn 12/30 10:35 Order name: EKG - Nurse/Tech; Complete Time: 10:56 rn 12/30 10:35 Order name: IV Saline Lock; Complete Time: 10:42 rn 12/30 10:35 Order name: Labs collected and sent; Complete Time: 10:42 rn 12/30 10:35 Order name: O2 Per Protocol; Complete Time: 10:42 rn 12/30 10:35 Order name: O2 Sat Monitoring; Complete Time: 10:42 rn EC:05 Rate is 91 beats/min. Rhythm is regular. QRS Bath is Normal. ME interval is normal. QRS rn interval is normal. QT interval is normal. No Q waves. T waves are Normal. No ST changes noted. Clinical impression: Normal ECG. Interpreted by me. Reviewed by me. Administered Medications: No medications were administered Disposition Summary: 12/30/24 12:31 Discharge Ordered Notes: Location: Home rn Problem: new rn Symptoms: have improved rn Condition: Stable rn Diagnosis - Dyspnea, unspecified rn Followup: rn - With: Private Physician - When: As needed - Reason: Recheck today's complaints, Re-evaluation by your physician Discharge Instructions: - Discharge Summary Sheet rn - Atelectasis, Adult rn - Shortness of Breath, Adult rn - How to Use an Incentive Spirometer rn Forms: - Medication Reconciliation Form rn - Antibiotic rn ostomy - Prescription Opioid Use rn - Patient Portal Instructions rn - Leadership Thank You Letter rn Signatures: Dispatcher [employer] Brayan Sheffield MD MD rn Hall, Patricia, RN RN ph Peter Ling RN RN ll1 Corrections: (The following items were deleted from the chart) 10:35 10:35 BASIC METABOLIC PANEL+C.LAB.BRZ ordered. EDMS EDMS 10:35 10:35 CBC+H.LAB.BRZ ordered. EDMS EDMS 10:35 10:35 PROBNP+C.LAB.BRZ ordered. EDMS EDMS 10:35 10:35 Troponin High Sensitivity+C.LAB.BRZ ordered. EDMS EDMS 10:35 10:35 Chest Single View+RAD.RAD.BRZ ordered. EDMS EDMS 10:36 10:36 Chest For PE Angio+CT.RAD.BRZ ordered. EDMS EDMS
--- NOTE | 2024-12-30 12:32 | ER ---
Nurse's Notes [facility] Name: Lolis Mao Age: 54 yrs Sex: Female : 1970 Arrival Date: 12/30/2024 Time: 10:17 Bed 6 Private MD: Diagnosis: Dyspnea, unspecified Presentation: 12/30 10:26 Chief complaint: Patient states: SOB 3-4 days with low grade fever. Coronavirus screen: ll1 Client denies travel out of the [place] in the last 14 days. At this time, the client does not indicate any symptoms associated with coronavirus-19. Ebola Screen: Patient denies travel to an Ebola-affected area in the 21 days before illness onset. Initial Sepsis Screen: Does the patient meet any 2 criteria? No. Patient's initial sepsis screen is negative. Does the patient have a suspected source of infection? No. Patient's initial sepsis screen is negative. Risk Assessment: Do you want to hurt yourself or someone else? Patient reports no desire to harm self or others. Onset of symptoms was December 27, 2024. 10:26 Method Of Arrival: Ambulatory ll1 10:26 Acuity: FABBY 3 ll1 Triage Assessment: 10:27 General: Appears in no apparent distress. Behavior is calm, cooperative, appropriate ll1 for age. Pain: Denies pain. Respiratory: Reports shortness of breath at rest Onset: The symptoms/episode began/occurred 3-4 days, the patient has mild shortness of breath. Historical: - Allergies: 10:20 Ciprofloxacin; ph 10:20 Demerol; ph 10:20 tramadol; ph 10:25 Meperidine; ll1 10:25 Sulfa (Sulfonamide Antibiotics); ll1 10:25 Codeine; ll1 - PMHx: 10:25 High Cholesterol; Renal Disease; Pancreatitis; ll1 - PSHx: 10:25 Cholecystectomy; ll1 - Immunization history:: Adult Immunizations up to date. - Infectious Disease History:: Denies. - Social history:: Smoking status: Patient denies any tobacco usage or history of. - Family history:: not pertinent. - Hospitalizations: : Patient was recently seen at. Screenin:29 [facility] ED Fall Risk Assessment (Adult) History of falling in the last 3 months, ph including since admission No falls in past 3 months (0 pts) Confusion or Disorientation No (0 pts) Intoxicated or Sedated No (0 pts) Impaired Gait No (0 pts) Mobility Assist Device Used No (0 pt) Altered Elimination No (0 pt) Score/Fall Risk Level 0 - 2 = Low Risk Oriented to surroundings, Maintained a safe environment, Hourly rounding (assess needs \T\ fall precautionary measures) done. Abuse screen: Denies threats or abuse. Denies injuries from another. Nutritional screening: No deficits noted. Tuberculosis screening: No symptoms or risk factors identified. Assessment: 10:56 Reassessment: No changes from previously documented assessment. Patient and/or family ll1 updated on plan of care and expected duration. Pain level reassessed. Patient is alert, oriented x 3, equal unlabored respirations, skin warm/dry/pink. 11:15 General: Appears in no apparent distress. comfortable. Pain: Denies pain. Neuro: Level me1 of Consciousness is awake, alert, obeys commands, Oriented to person, place, time, situation, Appropriate for age. Cardiovascular: Patient's skin is warm and dry. Rhythm is regular. Respiratory: Reports shortness of breath Airway is patent Respiratory effort is even, unlabored, Respiratory pattern is regular, symmetrical, Breath sounds are clear. GI: No signs and/or symptoms were reported involving the gastrointestinal system. : No signs and/or symptoms were reported regarding the genitourinary system. EENT: No signs and/or symptoms were reported regarding the EENT system. Derm: Skin is intact, is healthy with good turgor, Skin is pink, warm \T\ dry. Musculoskeletal: No signs and/or symptoms reported regarding the musculoskeletal system. Vital Signs: 10:26 BP 117 / 76; Pulse 111; Resp 20; Temp 97.7; Pulse Ox 100% on R/A; Weight 74.39 kg; ll1 Height 5 ft. 3 in. ; Pain 0/10; 12:40 BP 121 / 77; Pulse 85; Resp 18; Temp 97.8; Pulse Ox 98% on R/A; ph 10:26 Body Mass Index 29.05 (74.39 kg, 160.02 cm) ll1 10:26 Pain Scale: Adult ll1 ED Course: 10:18 Patient arrived in ED. mr 10:19 Brayan Gonzales MD is Attending Physician. rn 10:20 Vivar, Maritza, RN is Primary Nurse. ph 10:27 Triage completed. ll1 10:28 Arm band placed on Patient placed in an exam room, on a stretcher. ll1 10:29 Patient has correct armband on for positive identification. Bed in low position. Call ph light in reach. Side rails up X 1. Pulse ox on. NIBP on. 10:38 Inserted saline lock: 20 gauge in left antecubital area, using aseptic technique. Blood ss collected. Flushed with 10 mL NS. 10:38 Initial lab(s) drawn, by me, sent to lab. ss 11:04 XRAY Chest (1 view) In Process Unspecified. EDMS 11:15 Provided Education on: POC. Verbalized understanding. me1 11:15 No provider procedures requiring assistance completed. me1 11:35 CT Chest For PE Angio In Process Unspecified. EDMS 12:40 IV discontinued, intact, bleeding controlled, No redness/swelling at site. Pressure ph dressing applied. 12:40 INCENTIVE SPIROMETRY Sent. ph Administered Medications: No medications were administered Medication: 10:30 VIS not applicable for this client. ph Outcome: 12:31 Discharge ordered by MD. rn 12:39 Discharged to home ambulatory, with friend, ph 12:39 Condition: good 12:39 Discharge instructions given to patient, Instructed on discharge instructions, follow up and referral plans. INCENTIVE SPIROMETER Demonstrated understanding of instructions, follow-up care, 12:41 Patient left the ED. ph Signatures: Dispatcher [employer] EDIA Diane Farias, Reg Jonathan mr Brayan Gonzales MD MD rn Blanchard, Shelby, RN RN Maritza Vivar RN RN Peter Ling RN RN [facility] Jeri Art RN RN me1 Corrections: (The following items were deleted from the chart) 11:52 10:26 Chief complaint: Patient states: SOB 3-4 days with low grade fever ll1 me1
[2024-12-30 12:47] VITALS: BP 121/77; TEMP 97.8; O2SAT 98
--- NOTE | 2025-01-03 11:34 | EKG ---
Test Date: 2024-12-30 Test Time: 10:50:37 Risk Control Product Liability Director: LML MEASUREMENT RESULTS: Intervals: Rate: 91 MN: 128 QRSD: 84 QT: 350 QTc: 430 [place]: P: 63 MN: 128 QRS: 53 T: 28 INTERPRETIVE STATEMENTS: Normal sinus rhythm Normal ECG No previous ECG available for comparison Electronically Signed On 01-03-25 11:24:23 CDT by Walter Meyers
== END 2024-12-30 12:41 | disposition home or self-care (01) ==
LOC: ER 10:17
DX: R06.00 Dyspnea, unspecified (principal)
CPT/HCPCS: 93005; 85025; 80048; 36415; 84484; 83880; 71275; 71045; 99284; Q9967